=== PATIENT | female | born 1970 | race Caucasian/White ===

== ENCOUNTER 2020-08-27 06:54 | Outpatient (NON) | payer BC, SELFPAY ==
[2020-08-27 19:16] LABS: SARS-CoV-2 RNA PCR Positive
== END 2020-08-27 06:55 ==
PROVIDERS: PCP Family Medicine; Visit Provider Family Medicine
DX: U07.1 COVID-19 (principal)
CPT/HCPCS: 87635; C9803; U0003

== ENCOUNTER 2020-08-27 08:11 | Outpatient (NON) | payer BC, SELFPAY ==
[2020-08-27 11:22] LABS: Influenza Control Positive
== END 2020-08-27 08:12 ==
PROVIDERS: PCP Family Medicine; Visit Provider Family Medicine
DX: R05 Cough (principal)
CPT/HCPCS: 87804

== ENCOUNTER → 2021-09-12 03:41 | Outpatient (CLI) | payer BC, SELFPAY ==
[2021-09-12 12:05] LABS: Influenza Control Positive
[2021-09-15 20:53] LABS: SARS-CoV-2 RNA PCR Negative
== END ==
PROVIDERS: PCP Family Medicine; Visit Provider Family Medicine
DX: R05.9 Cough, unspecified (principal); Z20.822 Contact with and (suspected) exposure to COVID-19
CPT/HCPCS: 87804; C9803; U0003; U0005